=== PATIENT | female | born 1945 | race Caucasian/White ===

== ENCOUNTER 2022-06-30 11:02 | Day surgery (SDC) | payer MEDICARE, BC, SELFPAY ==
[2022-06-30] MEDS: TETRACAINE 0.5% OPHTH 1 DROP EYE-RIGHT (11:36)
[2022-06-30] MEDS: KETOROLAC OPHTH 0.5% 1 DROP EYE-RIGHT ×3 (11:46→12:10)
[2022-06-30 11:50] VITALS: BP 145/78; PULSE 85; RESP 16; TEMP 37.1; O2SAT 98
[2022-06-30] MEDS: SODIUM CHLORIDE 0.9 % (FLUSH) 10 ML SYRINGE IVF (11:57)
[2022-06-30 12:10] VITALS: BMI 31.4
--- NOTE | 2022-06-30 13:00 | W.ANESCHARGE ---
Anesthesia Charges Start Date/Time Anesthesia Start Date: 06/30/22 Anesthesia Start Time: 13:09 Stop Date/Time Anesthesia Stop Date: 06/30/22 Anesthesia Stop Time: 13:36 Summary Emergency: No Extremes of Age: Over 71-CPT 17472
--- NOTE | 2022-06-30 13:07 | W.ANESCHARGE ---
Anesthesia Charges Start Date/Time Anesthesia Start Date: 06/30/22 Anesthesia Start Time: 13:09 Stop Date/Time Anesthesia Stop Date: 06/30/22 Anesthesia Stop Time: 13:36 Summary Emergency: No Extremes of Age: Over 71-CPT 35473
[2022-06-30] MEDS: TETRACAINE 0.5% OPHTH 2 DROP EYE-RIGHT (13:14)
[2022-06-30] MEDS: BALANCED SALT IRRIG SOLN 15 ML EYE-RIGHT (13:18)
[2022-06-30] MEDS: BRIMONIDINE TARTRATE 0.2% OPHTH 1 DROP EYE-RIGHT (13:20)
--- NOTE | 2022-06-30 13:36 | PM.PROC ---
Procedure Note Date Seen: 06/30/22 Will [facility] bill your pro fee for this procedure?: No Procedure Description: Right eye dilated 1% Mydriacyl 2.5% phenylephrine Vigamox Ocufen operating room pause to identify patient and implant power and procedure sterile prep and drape that speculum placed paracentesis 12:00 p.m. OVD in ac, entered temporally keratome continuous tear capsulotomy hydrodissected local emulsified in the capsular bag, cortex removed bag expanded OVD, ZCBoo 0 23.5 OVD removed incision hydrated leak free topical Alphagan Vigamox discharged Surgeon: Terry Luo MD
[2022-06-30 13:40] VITALS: BP 174/89; PULSE 87; RESP 16; TEMP 36.7; O2SAT 96
== END 2022-06-30 14:12 | disposition home or self-care (01) ==
PROVIDERS: PCP Family Medicine; Visit Provider Ophthalmology
PROC: (CPT 66984; principal; 2022-06-30 12:30)
DX: H25.811 Combined forms of age-related cataract, right eye (principal)
CPT/HCPCS: 66984; 00142; 99100; A9270; J2250; J3010; S0020; V2632

== ENCOUNTER 2022-08-25 10:11 | Day surgery (SDC) | payer MEDICARE, BC, SELFPAY ==
[2022-08-25] MEDS: TETRACAINE 0.5% OPHTH 1 DROP EYE-LEFT (10:29)
[2022-08-25 10:38] VITALS: BP 173/89; PULSE 81; RESP 16; TEMP 36.9; O2SAT 98
[2022-08-25] MEDS: KETOROLAC OPHTH 0.5% 1 DROP EYE-LEFT ×3 (10:40→11:02)
[2022-08-25 10:43] VITALS: BMI 32.0
[2022-08-25] MEDS: SODIUM CHLORIDE 0.9 % (FLUSH) 10 ML SYRINGE IVF (11:00)
--- NOTE | 2022-08-25 11:09 | SUR.PREOP ---
1105: Patient to Endoscopy/Outpatient Clinic via wheelchair for YAG procedure with Dr. Luo.
[2022-08-25] MEDS: TETRACAINE 0.5% OPHTH 1 DROP EYE-RIGHT ×2 (11:12→11:17)
[2022-08-25] MEDS: BRIMONIDINE TARTRATE 0.2% OPHTH 1 DROP EYE-RIGHT (11:17)
[2022-08-25] MEDS: TETRACAINE 0.5% OPHTH 2 DROP EYE-LEFT (12:02)
--- NOTE | 2022-08-25 12:03 | W.ANESCHARGE ---
Anesthesia Charges Start Date/Time Anesthesia Start Date: 08/25/22 Anesthesia Start Time: 11:58 Stop Date/Time Anesthesia Stop Date: 08/25/22 Anesthesia Stop Time: 12:25 Summary Emergency: No Extremes of Age: Over 71-CPT 73370
[2022-08-25] MEDS: BALANCED SALT IRRIG SOLN 15 ML EYE-LEFT (12:06)
[2022-08-25] MEDS: BRIMONIDINE TARTRATE 0.2% OPHTH 1 DROP EYE-LEFT (12:20)
--- NOTE | 2022-08-25 12:22 | PM.PROC ---
Procedure Note Date Seen: 08/25/22 Date of procedure: 08/25/22 Will [facility] bill your pro fee for this procedure?: No Procedure Description: NAME OF PROCEDURE YAG laser capsulotomy, right eye. PREOP DIAGNOSIS Obscuring lens capsule, right eye. POSTOP DIAGNOSIS Obscuring lens capsule, right eye, repaired. INDICATIONS FOR PROCEDURE This patient has experienced a painless progressive loss of vision in their right eye. Antonio Staton MD was unable to improve this patients corrective lenses that would give them clear vision. For that reason, this patient elected to proceed with laser capsulotomy on the right eye. I explained the risks, benefits, alternative treatments to them including possible need for exchanging the implant. The patient understands, accepts, and elects to proceed with surgical repair. PROCEDURE After the right pupil was dilated with 1% Mydriacyl, topical anesthetic was applied. The patient was positioned for the YAG laser where after placing a laser lens, a standard cruciform capsulotomy was performed utilizing 37 pulses at 2.2 mJ. The patient was then discharged in good condition, having tolerated the procedure well. Condition on discharge was satisfactory. Surgeon: Terry Luo MD
--- NOTE | 2022-08-25 12:24 | PM.PROC ---
Procedure Note Date Seen: 08/25/22 Date of procedure: 08/25/22 Will [facility] bill your pro fee for this procedure?: No Procedure Description: NAME OF PROCEDURE Brittany phacoemulsification, left eye, with posterior chamber lens implant. PREOPERATIVE DIAGNOSIS Nuclear sclerotic cortical combined cataract, left eye. POSTOPERATIVE DIAGNOSIS Nuclear sclerotic cortical combined cataract, left eye. INDICATIONS FOR PROCEDURE The patient has noted that his vision in the left eye is failing. Severity 7/10. Unable to correct with glasses/contact lenses; has disabling night glare when driving, difficulty reading. Because of this, the patient elected to proceed with surgical repair. I have explained the risks, benefits, alternative treatments to the patient including possible loss of the eye under correction, over correction, need for more surgery. The patient understands, accepts, and elects to proceed with surgical repair. PROCEDURE The left eye was dilated with a combination 1% Mydriacyl, 2.5% phenylephrine with topical Ocufen and Vigamox applied to the corneal surface. The patient was brought to the main operating room where under IV sedation, after pausing to identify the correct patient, correct intraoperative lens, power 24.0 diopters, the left eye was prepped and draped in usual sterile fashion for intraocular surgery. A lid speculum was placed and a paracentesis created at 6 o'clock. The chamber was filled with OVD and entered temporally with a keratome. A continuous tear capsulotomy was performed. The nucleus was hydrodissected and emulsified with local anesthetic and emulsified in a chop technique in the capsular bag. Residual cortex was cleaned. The capsule was clear. At this point, ZCBOO 24.0 diopter posterior chamber lens implant was injected into the capsular bag and was well centered. Residual OVD was cleaned from behind the implant from the capsular bag. The incision hydrated and noted to be leak free. Topical Alphagan, pilocarpine, and Vigamox were applied to the corneal surface and the patient returned to recovery in good condition having tolerated the procedure well. CONDITION ON DISCHARGE Satisfactory. Surgeon: Terry Luo MD
[2022-08-25 12:25] VITALS: BP 145/94; PULSE 81; RESP 16; TEMP 36.2; O2SAT 95
--- NOTE | 2022-08-25 13:22 | W.ANESCHARGE ---
Anesthesia Charges Start Date/Time Anesthesia Start Date: 08/25/22 Anesthesia Start Time: 11:58 Stop Date/Time Anesthesia Stop Date: 08/25/22 Anesthesia Stop Time: 12:25 Summary Emergency: No Extremes of Age: Over 71-CPT [id number]
== END 2022-08-25 12:50 | disposition home or self-care (01) ==
PROVIDERS: PCP Family Medicine; Visit Provider Ophthalmology
PROC: (CPT 66984; principal; 2022-08-25 11:30)
DX: H25.812 Combined forms of age-related cataract, left eye (principal); H26.491 Other secondary cataract, right eye; H54.7 Unspecified visual loss
CPT/HCPCS: 66984; 00142; 66821; 99100; A9270; J2250; J3010; S0020; V2632

== ENCOUNTER 2023-03-30 12:23 | Outpatient (CLI) | payer MEDICARE, BC, SELFPAY ==
[2023-03-30 12:33] VITALS: BP 170/88; PULSE 93; RESP 16; O2SAT 98
[2023-03-30] MEDS: TETRACAINE 0.5% OPHTH 1 DROP EYE-LEFT ×3 (12:38→13:00)
[2023-03-30] MEDS: BRIMONIDINE TARTRATE 0.2% OPHTH 1 DROP EYE-LEFT ×2 (12:38→13:08)
--- NOTE | 2023-03-30 13:11 | PM.PROC ---
Procedure Note Date Seen: 03/30/23 Will [facility] bill your pro fee for this procedure?: No Pre-op diagnosis: obscuring lens capsule os Procedure: yag pc os Procedure Description: NAME OF PROCEDURE YAG laser capsulotomy, left eye. PREOP DIAGNOSIS Obscuring lens capsule, left eye. POSTOP DIAGNOSIS Obscuring lens capsule, left eye, repaired. INDICATIONS FOR PROCEDURE This patient has experienced a painless progressive loss of vision in their left eye. Antonio Staton MD was unable to improve this patients corrective lenses that would give them clear vision. For that reason, this patient elected to proceed with laser capsulotomy on the left eye. I explained the risks, benefits, alternative treatments to them including possible need for exchanging the implant. The patient understands, accepts, and elects to proceed with surgical repair. PROCEDURE After the left pupil was dilated with 1% Mydriacyl, topical anesthetic was applied. The patient was positioned for the YAG laser where after placing a laser lens, a standard cruciform capsulotomy was performed utilizing 32 pulses at 2.2 mJ. The patient was then discharged in good condition, having tolerated the procedure well. Condition on discharge was satisfactory.
== END 2023-03-30 13:14 | disposition home or self-care (01) ==
LOC: EYE PRC 12:24
PROVIDERS: PCP Family Medicine; Visit Provider Ophthalmology
DX: H26.9 Unspecified cataract (principal)
CPT/HCPCS: 66821; A9270